=== PATIENT | male | born 1985 | race American Indian/Alaskan Native ===

== ENCOUNTER 2019-10-28 11:09 | Emergency (ER) | payer SELFPAY ==
[2019-10-28 11:42] VITALS: BP 135/82
--- NOTE | 2019-10-28 12:20 | Emergency Department Report ---
Chief Complaint: Upper Respiratory Infection Stated Complaint: FEVER/COUGH/CONGESTION Time Seen by Provider: 10/28/19 12:02 - HPI History of Present Illness: This is a 34 y.o. M. that presents to the ER cough, congestion, vomiting, and diarrhea for 5 days. Children with similar symptoms. Took cough syrup for 2 days. States vomiting and diarrhea resolved. Denies taking anything else for symptomatic relief. Denies chest pain, SOB, nausea, vomiting, weakness, diarrhea, headache - ROS Review of Systems: EENT: Rhinorrhea, congestion Respiratory: cough, GI: vomiting, and diarrhea - Exam Vital Signs: Vital Signs 10/28/19 11:42 Temperature 98.2 F Pulse Rate 87 Respiratory 16 Rate Blood Pressure 135/82 [Left] O2 Sat by Pulse 95 Oximetry Physical Exam: General: Vital signs noted. No distress. Alert and acting appropriately. HEENT: Yes Moist Mucous Membranes, Yes Rhinorrhea (turbinates congested with clear discharge), No Pharyngeal Erythema, No Pharyngeal Exudates, No Conjuctival Injection, No Frontal Tenderness, No Maxillary Tenderness Ear: Neither TM Bulge, Neither TM Erythema, Neither EAC Pain, Neither EAC Discharge Neck: Yes Supple, No Adenopathy Lungs: Yes Good Air Exchange, No Wheezes, No Ronchi, No Stridor, No Cough, No Labored Respirations, No Retractions, No Use of Accessory Muscles, No Other Abnormal Lung Sounds Heart: Yes Regular, No Murmur Abdomen: Yes Normal Bowel Sounds, No Tenderness, No Peritoneal Signs Skin: No Rash, No Edema Neurologic: Alert and oriented, no deficits. Musculoskeletal: Unremarkable. MSE screening note: Focused history and physical exam performed. Due to findings the following was ordered: ED Medical Decision Making - Medical Decision Making 34 y.o. male that presents with URI symptoms. Patient examined by me and stable. No distress noted. Vitals normal. No past medical history. Patient presenting with symptoms likely representing uncomplicated viral upper respiratory symptoms. Denies sore throat, dysphagia, chest pain, shortness of breath, fever, vomiting, or diarrhea. Low suspicion for bacterial infection given exam and history. Is is non-emergent medical complaint. Given a list of medications to take [id number] for symptomatic relief. Instructed to take ibuprofen, naproxen, or Tylenol for body aches. No overt indications at this time for antibiotics. No respiratory distress, otherwise relatively well appearing and nontoxic. Follow up with PMD and strict return precautions given. Discharged home stable. ED Disposition for MSE Disposition: MED SCREENING EXAM-LEFT Is pt being admited?: No Condition: Stable Instructions: Upper Respiratory Infection (ED), Cold Symptoms (ED) Referrals: [facility] [place] [Outside] - 3-5 Days [facility] [Outside] - 3-5 Days [facility] [Outside] - 3-5 Days Forms: Work/School Release Form(ED) Time of Disposition: 14:01
== END 2019-10-28 14:12 | disposition left against medical advice (07) ==
LOC: ED 11:09
DX: R05 Cough (principal); R09.81 Nasal congestion; R11.10 Vomiting, unspecified; J34.89 Other specified disorders of nose and nasal sinuses
CPT/HCPCS: 99281